=== PATIENT | male | born 1965 | race African-American/Black ===

== ENCOUNTER 2017-06-21 13:54 | Emergency (ER) | payer SELFPAY, MEDICAID ==
[2017-06-21 14:58] LABS: ADD MAN DIFF? NO
[2017-06-21 15:05] LABS: BASO % 1 % (0-3); EOS # 0.1 x10^3/uL (0.0-0.7); EOS % 1 % (0-3); HEMATOCRIT 45.8 % (39.0-53.0); HEMOGLOBIN 14.4 g/dL (13.0-17.5); LYMPH # 1.9 x10^3/uL (1.0-4.8); LYMPH % 25 % (24-48); MEAN CORPUSCULAR HEMOGLOBIN 22 pg (25-35); MEAN CORPUSCULAR HGB CONC 32 g/dL (31-37); MEAN CORPUSCULAR VOLUME 69 fL (79-100); MONO # 0.6 x10^3/uL (0.0-1.1); MONO % 8 % (0-9); NEUT # 4.9 x10^3uL (1.8-7.7); NEUT % 65 % (31-73); PLATELET COUNT 270 x10^3/uL (140-400); RED BLOOD COUNT 6.63 x10^6/uL (4.30-5.70); RED CELL DISTRIBUTION WIDTH 16.9 % (11.5-14.5); WHITE BLOOD COUNT 7.5 x10^3/uL (4.0-11.0)
[2017-06-21] MEDS: IV NORMAL SALINE 1000ML BAG 1,000 ML IV (15:05)
[2017-06-21 15:06] LABS: BILIRUBIN,URINE NEGATIVE (NEG); CLARITY,URINE CLEAR; COLOR,URINE YELLOW; GLUCOSE,URINE NEGATIVE (NEG); NITRITE,URINE NEGATIVE (NEG); PROTEIN,URINE NEGATIVE (NEG-TRACE); UROBILINOGEN,URINE 0.2 mg/dL (0.2 mg/dL)
[2017-06-21] MEDS: LABETALOL 20 MG/4 ML DISP.SYRIN. IVP (15:06)
[2017-06-21 15:08] LABS: BARBITURATES NEG (NEG); BENZODIAZEPINES NEG (NEG); CANNABINOIDS NEG (NEG); COCAINE NEG (NEG); METHADONE NEG (NEG); OPIATES NEG (NEG); PHENCYCLIDINE NEG (NEG)
[2017-06-21 15:11] LABS: AMPHETAMINE/METHAMPHETAMINE NEG (NEG); ETHANOL, URINE NEG (NEG)
[2017-06-21 15:17] LABS: ANION GAP 12 (6-14); BACTERIA,URINE 0 /HPF (0-FEW); BLOOD UREA NITROGEN 17 mg/dL (8-26); BUN/CREATININE RATIO 15 (6-20); CALCIUM 8.6 mg/dL (8.5-10.1); CARBON DIOXIDE 24 mmol/L (21-32); CHLORIDE 101 mmol/L (98-107); CREATININE 1.1 mg/dL (0.7-1.3); GFR 84.7; GLUCOSE 97 mg/dL (70-99); POTASSIUM 4.1 mmol/L (3.5-5.1); SODIUM 137 mmol/L (136-145); WBC,URINE 0 /HPF (0-4)
[2017-06-21 15:23] LABS: ALBUMIN 3.7 g/dL (3.4-5.0); ALBUMIN/GLOBULIN RATIO 0.9 (1.0-1.7); ALK PHOS 102 U/L (46-116); ALT (SGPT) 26 U/L (16-63); AST (SGOT) 24 U/L (15-37); TOTAL BILIRUBIN 0.3 mg/dL (0.2-1.0); TOTAL PROTEIN 7.6 g/dL (6.4-8.2)
[2017-06-21 16:10] LABS: ANISOCYTOSIS SLIGHT; HYPOCHROMIA MOD; MICROCYTOSIS MOD; PLT ESTIMATE ADEQUATE (ADEQUATE); POLYCHROMASIA PRESENT; TARGET CELLS FEW
[2017-06-21] MEDS: hydrALAZINE 20 MG/ML VIAL. IVP (16:10)
== END 2017-06-21 16:44 | disposition home or self-care (01) ==
LOC: ER 13:54
DX: I10 Essential (primary) hypertension (principal)
CPT/HCPCS: 36415; 80053; 80307; 81001; 85025; 93005; 96361; 96374; 96375; 99285-25; J0360; J3490; J7030

== ENCOUNTER 2018-02-07 07:47 | Emergency (ER) | payer SELFPAY ==
[~2018-02-07] VITALS: Ht 180.3 cm; Wt 112.5 kg
[~2018-02-07 07:47] MED LIST: HYDR25TA9 PO
[2018-02-07 09:01] VITALS: BP 166/109
--- NOTE | 2018-02-07 18:07 | PHYS DOC ---
Past Medical History Past Medical History: Hypertension Past Surgical History: Other Additional Past Surgical Histo: BACK SURGERY Alcohol Use: Occasionally Drug Use: None Adult General Chief Complaint Chief Complaint: HYPERTENSION HPI HPI Patient is a 52 year old [f__sex] who presents with [] Review of Systems Review of Systems Constitutional: Denies fever or chills [] Eyes: Denies change in visual acuity, redness, or eye pain [] HENT: Denies nasal congestion or sore throat [] Respiratory: Denies cough or shortness of breath [] Cardiovascular: No additional information not addressed in HPI [] GI: Denies abdominal pain, nausea, vomiting, bloody stools or diarrhea [] : Denies dysuria or hematuria [] Musculoskeletal: Denies back pain or joint pain [] Integument: Denies rash or skin lesions [] Neurologic: Denies headache, focal weakness or sensory changes [] Endocrine: Denies polyuria or polydipsia [] All other systems were reviewed and found to be within normal limits, except as documented in this note. Allergies Allergies Allergies Coded Allergies Type Severity Reaction Last Updated Verified No Known Drug Allergies 08/03/16 No Physical Exam Physical Exam Constitutional: Well developed, well nourished, no acute distress, non-toxic appearance. [] HENT: Normocephalic, atraumatic, bilateral external ears normal, oropharynx moist, no oral exudates, nose normal. [] Eyes: PERRLA, EOMI, conjunctiva normal, no discharge. [] Neck: Normal range of motion, no tenderness, supple, no stridor. [] Cardiovascular:Heart rate regular rhythm, no murmur [] Lungs & Thorax: Bilateral breath sounds clear to auscultation [] Abdomen: Bowel sounds normal, soft, no tenderness, no masses, no pulsatile masses. [] Skin: Warm, dry, no erythema, no rash. [] Back: No tenderness, no CVA tenderness. [] Extremities: No tenderness, no cyanosis, no clubbing, ROM intact, no edema. [] Neurologic: Alert and oriented X 3, normal motor function, normal sensory function, no focal deficits noted. [] Psychologic: Affect normal, judgement normal, mood normal. [] Current Patient Data Vital Signs Vital Signs Date Time Temp Pulse Resp B/P (MAP) Pulse Ox O2 Delivery O2 Flow Rate FiO2 02/07/18 09:01 78 18 99 02/07/18 07:50 97.9 195/107 (136) Room Air 97.9 EKG EKG [] Radiology/Procedures Radiology/Procedures [] Course & Med Decision Making Course & Med Decision Making Pertinent Labs and Imaging studies reviewed. (See chart for details) [] Dragon Disclaimer Dragon Disclaimer This electronic medical record was generated, in whole or in part, using a voice recognition dictation system. Departure Departure Referrals: UNKNOWN PCP NAME (PCP) KHALIF DUNHAM APRN Feb 07, 2018 18:07
== END 2018-02-07 10:03 | disposition home or self-care (01) ==
LOC: ER 07:47
DX: I10 Essential (primary) hypertension (principal)
CPT/HCPCS: 99283

== ENCOUNTER 2018-08-08 17:23 | Emergency (ER) | payer OTHER ==
[~2018-08-08] VITALS: Ht 180.3 cm; Wt 112.5 kg
[~2018-08-08 17:23] MED LIST changes: +HYDR-2145 PO; -HYDR25TA9 PO
--- NOTE | 2018-08-08 18:23 | PHYS DOC ---
Past Medical History Past Medical History: Hypertension (FRED SANCHEZ APRN) Past Surgical History: Other Additional Past Surgical Histo: BACK SURGERY (FRED SANCHEZ APRN) Alcohol Use: Occasionally Drug Use: None (FRED SANCHEZ APRN) Adult General Chief Complaint Chief Complaint: [facility] HPI Patient is a 53 year old male who presents with pain in his left shoulder and arm that has been worsening over the past few days. The patient feels like it is nerve pain. He denies any known injury. He is an over the road truck operator. The patient has been noncompliant with his medications. He has not taken any blood pressure medication and states that he is not been able to have it filled because he was too busy to be seen by his provider. He states that he was diagnosed as diabetic but that his provider told him that it wasn't bad enough for him to start medication. He has limited range of motion of the left arm due to pain. (FRED SANCHEZ APRN) Review of Systems Review of Systems Constitutional: Denies fever or chills [] Respiratory: Denies cough or shortness of breath [] Cardiovascular: No additional information not addressed in HPI [] GI: Denies abdominal pain, nausea, vomiting, bloody stools or diarrhea [] : Denies dysuria or hematuria [] Musculoskeletal: See history of present illness Integument: Denies rash or skin lesions [] Neurologic: Denies headache, focal weakness or sensory changes [] Endocrine: Denies polyuria or polydipsia [] All other systems were reviewed and found to be within normal limits, except as documented in this note. (FRED SANCHEZ APRN) Current Medications Current Medications Current Medications Medications (Trade) Dose Ordered Sig/Callie Start Time Stop Time Status Last Admin Dose Admin Clonidine HCl (Catapres) 0.1 mg 1X ONCE 08/08/18 18:30 08/08/18 18:31 DC 08/08/18 18:36 0.1 MG (ECHO WALLS MD) Allergies Allergies Allergies Coded Allergies Type Severity Reaction Last Updated Verified No Known Drug Allergies 08/03/16 No (ECHO WALLS MD) Physical Exam Physical Exam Constitutional: Well developed, well nourished, no acute distress, non-toxic appearance. [] Cardiovascular:Heart rate regular rhythm, no murmur [] Lungs & Thorax: Bilateral breath sounds clear to auscultation [] Abdomen: Bowel sounds normal, soft, no tenderness, no masses, no pulsatile masses. [] Skin: Warm, dry, no erythema, no rash. [] Back: No tenderness, no CVA tenderness. [] Extremities: tenderness to left upper arm with palpation, pulses and sensation are intact distal to pain, the patient states that there is some radiation of the pain, no cyanosis, no clubbing, ROM decreased due to pain, no edema. [] Neurologic: Alert and oriented X 3, normal motor function, normal sensory function, no focal deficits noted. [] Psychologic: Affect normal, judgement normal, mood normal. [] (FRED SANCHEZ APRN) Current Patient Data Vital Signs Vital Signs Date Time Temp Pulse Resp B/P (MAP) Pulse Ox O2 Delivery O2 Flow Rate FiO2 08/08/18 18:36 88 187/119 08/08/18 18:24 97.7 18 99 Room Air 97.7 (ECHO WALLS MD) EKG EKG [] (FRED SANCHEZ APRN) Radiology/Procedures Radiology/Procedures [] (FRED SANCHEZ APRN) Course & Med Decision Making Course & Med Decision Making Pertinent Labs and Imaging studies reviewed. (See chart for details) []The patient was given a dose of clonidine in the emergency department for his hypertension. The patient is to follow-up with his primary care provider or neurology for nerve testing. (FRED SANCHEZ APRN) Course & Med Decision Making [facility] Staff Physician Addendum: I was working in the ER during the course of this patient's visit. I was available for consultation as needed, but I was not directly involved in the care of this patient. (ECHO WALLS MD) Dragon Disclaimer Dragon Disclaimer This electronic medical record was generated, in whole or in part, using a voice recognition dictation system. (FRED SANCHEZ APRN) Departure Departure Impression: Primary Impression: Pinched nerve in shoulder Additional Impression: Hypertension Disposition: 01 HOME, SELF-CARE Condition: STABLE Referrals: UNKNOWN PCP NAME (PCP) KWAKU GLEASON MD Patient Instructions: Pinched Nerve Additional Instructions: Take your extra strength Excedrin to control pain. Make sure you take a dose before bedtime. You need to take your blood pressure medication as directed. You 're given a dose of medication in the emergency department to help reduce her pressure. Follow up with [facility] for a recheck within 3 days. Scripts Enalapril Maleate (ENALAPRIL MALEATE) 10 Mg Tablet 1 TAB PO DAILY for HTN, #30 TAB 5 Refills Prov: FRED SANCHEZ APRN 08/08/18 Problem Qualifiers FRED SANCHEZ APRN Aug 08, 2018 18:23 ECHO WALLS MD Aug 09, 2018 00:31
[2018-08-08] MEDS ORDERED: ENAL10TA PO (18:27)
[2018-08-08] MEDS ORDERED: cloNIDine HCL 0.1 MG TABLET PO ONE (18:30)
[2018-08-08 18:36] VITALS: BP 187/119
== END 2018-08-08 18:39 | disposition home or self-care (01) ==
LOC: ER 17:23
DX: G58.8 Other specified mononeuropathies (principal); M25.512 Pain in left shoulder; M79.622 Pain in left upper arm; I10 Essential (primary) hypertension; Z91.14 Patient's other noncompliance with medication regimen
CPT/HCPCS: 99283